=== PATIENT | male | born 1970 | race Caucasian/White ===

== ENCOUNTER 2017-03-05 17:37 | Emergency (ER) | payer SELFPAY ==
[~2017-03-05] VITALS: Ht 177.8 cm; Wt 70.0 kg
[2017-03-05 17:40] VITALS: BP 151/99; PULSE 81; RESP 16; TEMP 97.9; O2SAT 95
[2017-03-05 19:24] VITALS: BP 141/89; PULSE 82; RESP 16; TEMP 98.7; O2SAT 100
[2017-03-05] MEDS ORDERED: SODIUM CHLOR 0.9% 1000 ML INJ 1,000 ML IV SCH (19:35)
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
[2017-03-05] MEDS ORDERED: SODIUM CHLORIDE 0.9% FLUSH 10 ML FLUSH IV FLUSH PRN (19:45)
[2017-03-05] MEDS ORDERED: ONDANSETRON HCL 4 MG/2 ML VIAL IVP ONE (19:45)
[2017-03-05 20:13] LABS: WHITE BLOOD COUNT 18.8 TH/MM3 (4.0-11.0)
[2017-03-05 20:14] LABS: AUTOMATED NEUTROPHIL # 14.7 TH/MM3 (1.8-7.7); BASOPHIL # 0.1 TH/MM3 (0-0.2); BASOPHIL % 0.4 % (0.0-2.0); EOSINOPHIL # 0.3 TH/MM3 (0-0.4); EOSINOPHIL % 1.5 % (0.0-4.0); HEMATOCRIT 51.2 % (39.0-51.0); HEMO FLAGS DIFF FINAL; LYMPH % 13.7 % (9.0-44.0); LYMPHOCYTE # 2.6 TH/MM3 (1.0-4.8); MEAN CELL VOLUME 90.5 FL (80.0-100.0); MEAN CORPUSCULAR HEMOGLOBIN 29.4 PG (27.0-34.0); MEAN CORPUSCULAR HGB CONC 32.5 % (32.0-36.0); MONO % 6.2 % (0.0-8.0); NEUT % 78.2 % (16.0-70.0); PLATELET COUNT 356 TH/MM3 (150-450); RED BLOOD COUNT 5.66 MIL/MM3 (4.50-5.90); RED CELL DISTRIBUTION WIDTH 14.5 % (11.6-17.2)
[2017-03-05 20:42] LABS: ALT (GPT) 34 U/L (12-78)
[2017-03-05 20:43] LABS: ANION GAP 8 MEQ/L (5-15); AST (GOT) 29 U/L (15-37); BICARBONATE 31.9 MEQ/L (21.0-32.0); BLOOD UREA NITROGEN 8 MG/DL (7-18); CHLORIDE 101 MEQ/L (98-107); GLOMERULAR FILTRATION RATE 57 ML/MIN (>89); POTASSIUM 3.3 MEQ/L (3.5-5.1); SODIUM (NA) 141 MEQ/L (136-145)
[2017-03-05 20:44] LABS: ALKALINE PHOSPHATASE 144 U/L (45-117); TOTAL BILIRUBIN ADULT 0.4 MG/DL (0.2-1.0)
[2017-03-05 20:46] VITALS: RESP 16; O2SAT 97
[2017-03-05] MEDS ORDERED: IOHEXOL 350 MG/ML 10 ML VIAL (for RAD DIAG) IVCONTRAST ONE (21:35)
--- NOTE | 2017-03-05 21:49 | RADRPT ---
EXAM DATE/TIME: 03/05/2017 21:25 [facility] COMPARISON: No previous studies available for comparison. INDICATIONS : Abdominal pain with nausea and vomiting. IV CONTRAST: 95 cc Omnipaque 350 (iohexol) IV ORAL CONTRAST: No oral contrast ingested. RADIATION DOSE: 6.64 CTDIvol (mGy) MEDICAL HISTORY : Bowel obstruction. SURGICAL HISTORY : Appendectomy. Colon resection. ENCOUNTER: Initial ACUITY: 1 day PAIN SCALE: 6/10 LOCATION: Bilateral abdomen TECHNIQUE: Volumetric scanning of the abdomen and pelvis was performed. Using automated exposure control and ad justment of the mA and/or kV according to patient size, radiation dose was kept as low as reasonably achievable to obtain optimal diagnostic quality images. DICOM format image data is available electro nically for review and comparison. FINDINGS: Grade 1 anterolisthesis of L5 on S1. Lung bases are clear. There surgical clips in the left upper hiwot drant. The patient is status post appendectomy and previous colon surgery. Pancreas, kidneys, liver u nremarkable. The patient is status post splenectomy. There is evidence of previous right hemicolectom y. In the left upper pelvis an enhancing soft tissue nodule is present measuring 3.4 cm. Just above t his is an additional similar attenuation mass measuring 0.7 cm. In the right upper quadrant posterior to the right lobe of the liver are numerous enhancing nodules. The largest measures up to 3.5 cm. Th ere are mildly distended loops of small bowel seen best on coronal imaging up to 4.6 cm. A discrete t ransition point is not seen. The large bowel is not decompressed. An ileus can have this appearance v ersus normal baseline in this patient status post partial bowel resection. There are scattered enhanc ing soft tissue nodules roughly in her nodule on coronal image 77 in the left paracolic region, on im age 69 measuring up to 1.2 cm adjacent to the large bowel, on image 82 in the left upper quadrant tereza suring 16 cm. Bilateral L5 pars defects. CONCLUSION: 1. Mildly distended loops of bowel without transition point to suggest obstruction. Mild ileus versu s normal baseline in this postop patient with history of previous bowel resection. 2. Scattered enhancing soft tissue nodules are seen throughout the abdomen and pelvis possibly repres enting regenerative splenic tissue in this patient with history of splenectomy. Comparison to any pre vious studies would be helpful. They do not have the typical appearance of adenopathy or metastatic i mplants but similar enhancement appearance of a normal spleen. Puneet Blackman MD on March 05, 2017 at 21:41 Board Certified Radiologist. This report was verified electronically.
[2017-03-05] MEDS ORDERED: POTASSIUM CHLOR 20 MEQ PREMIX 100 ML IV ONE (22:15)
--- NOTE | 2017-03-05 22:27 | PD ---
Physical Exam Narrative I, Dr. Blas, have reviewed the advance practice practitioner's documentation and am in agreement, met with the patient face to face, made the diagnosis, and the medical decision making was done by me. *My assessment and Findings: Colitis vs. obstruction vs. gastroenteritis vs. UTI 46yo M with PMH of bowel obstruction here with nausea, vomiting and abdominal pain. Abdomen is soft, but diffusely tender. Labs reviewed, leukocytosis at 18.8. Mild hypokalemia at 3.3. Mild elevated alk phos. CT a/p showed mildly distended loops of bowel without transition point to suggest obstruction. Mild ileus versus normal baseline in this post op patient. Pt had normal bowel movement yesterday and is having flatus. Do not think pt is having obstruction now. Pt given zofran and no longer nauseous. Will do PO challenge. Pt tolerating PO. UA negative. Pain improved after morphine. Pt is well appearing and can follow up with [facility]. Return precautions given. Data Data Last Documented VS Vital Signs Date Time Temp Pulse Resp B/P (MAP) Pulse Ox O2 Delivery O2 Flow Rate FiO2 03/05/17 23:00 65 14 135/83 (100) 100 Room Air 03/05/17 19:24 98.7 Orders Orders Complete Blood Count With Diff (03/05/17 19:35) Comprehensive Metabolic Panel (03/05/17 19:35) Lipase (03/05/17 19:35) Ct Abd/Pel W Iv Contrast(Rout) (03/05/17 19:35) Iv Access Insert/Monitor (03/05/17 19:35) Ecg Monitoring (03/05/17 19:35) Oximetry (03/05/17 19:35) NPO (03/05/17 19:35) Ondansetron Inj (Zofran Inj) (03/05/17 19:45) Sodium Chlor 0.9% 1000 Ml Inj (Ns 1000 M (03/05/17 19:35) Sodium Chloride 0.9% Flush (Ns Flush) (03/05/17 19:45) Iohexol 350 Inj (Omnipaque 350 Inj) (03/05/17 21:35) Potassium Chlor 20 Meq Premix (Kcl 20 Me (03/05/17 22:15) Morphine Inj (Morphine Inj) (03/05/17 22:30) Urinalysis - C+S If Indicated (03/05/17 22:18) Ed Discharge Order (03/06/17 00:55) Labs Laboratory Tests Test 03/05/17 19:50 03/05/17 22:50 White Blood Count 18.8 TH/MM3 Red Blood Count 5.66 MIL/MM3 Hemoglobin 16.7 GM/DL Hematocrit 51.2 % Mean Corpuscular Volume 90.5 FL Mean Corpuscular Hemoglobin 29.4 PG Mean Corpuscular Hemoglobin Concent 32.5 % Red Cell Distribution Width 14.5 % Platelet Count 356 TH/MM3 Mean Platelet Volume 9.4 FL Neutrophils (%) (Auto) 78.2 % Lymphocytes (%) (Auto) 13.7 % Monocytes (%) (Auto) 6.2 % Eosinophils (%) (Auto) 1.5 % Basophils (%) (Auto) 0.4 % Neutrophils # (Auto) 14.7 TH/MM3 Lymphocytes # (Auto) 2.6 TH/MM3 Monocytes # (Auto) 1.2 TH/MM3 Eosinophils # (Auto) 0.3 TH/MM3 Basophils # (Auto) 0.1 TH/MM3 CBC Comment DIFF FINAL Differential Comment Blood Urea Nitrogen 8 MG/DL Creatinine 1.34 MG/DL Random Glucose 94 MG/DL Total Protein 8.7 GM/DL Albumin 4.2 GM/DL Calcium Level 9.2 MG/DL Alkaline Phosphatase 144 U/L Aspartate Amino Transf (AST/SGOT) 29 U/L Alanine Aminotransferase (ALT/SGPT) 34 U/L Total Bilirubin 0.4 MG/DL Sodium Level 141 MEQ/L Potassium Level 3.3 MEQ/L Chloride Level 101 MEQ/L Carbon Dioxide Level 31.9 MEQ/L Anion Gap 8 MEQ/L Estimat Glomerular Filtration Rate 57 ML/MIN Lipase 101 U/L Urine Color YELLOW Urine Turbidity CLEAR Urine pH 7.5 Urine Specific [place] GREATER THAN 1.050 Urine Protein TRACE mg/dL Urine Glucose (UA) NEG mg/dL Urine Ketones NEG mg/dL Urine Occult Blood NEG Urine Nitrite NEG Urine Bilirubin NEG Urine Urobilinogen LESS THAN 2.0 MG/DL Urine Leukocyte Esterase NEG Urine RBC 1 /hpf Urine WBC 1 /hpf Urine Mucus FEW /lpf Microscopic Urinalysis Comment CULT NOT INDICATED MDM Supervised Visit with LYNDA: Yes Diagnosis Primary Impression: Abdominal pain Qualified Codes: R10.84 - Generalized abdominal pain Patient Instructions: General Instructions Departure Forms: Tests/Procedures Additional Instruction: [facility]. Return to the ED if symptoms worsen. Med/Other Pt SpecificInfo: Prescription(s) given Scripts Ondansetron Odt (Zofran Odt) 4 Mg Tab 4 MG SL Q12HR Y for Nausea/Vomiting, #6 TAB 0 Refills Prov: Karen Blas DO 03/06/17 Acetaminophen (Tylenol) 325 Mg Tab 650 MG PO Q6H Y for PAIN SCALE 1 TO 4 for 5 Days, #40 TAB 0 Refills Prov: Karen Blas DO 03/06/17 Disposition: 01 DISCHARGE HOME Condition: Stable Karen Blas DO Mar 05, 2017 22:27
[2017-03-05] MEDS ORDERED: MORPHINE SULFATE 4 MG/ML INJ IV PUSH ONE (22:30)
[2017-03-05 23:00] VITALS: BP 135/83; PULSE 65; RESP 14; O2SAT 100
[2017-03-05 23:19] LABS: BLOOD, URINE NEG (NEG); COMMENT (UR) CULT NOT INDICATED; CULTURE IF INDICATED CULT NOT INDICATED; GLUCOSE,URINE NEG (NEG); KETONE, URINE NEG (NEG); MUCUS URINE FEW /lpf (OCC); NITRITE,URINE NEG (NEG); PH, URINE 7.5 (5.0-8.5); URINE COLOR YELLOW (YELLW/STRAW)
[2017-03-06] MEDS ORDERED: TYLE325T PO (00:54)
[2017-03-06] MEDS ORDERED: ZOFR4TAB3 SL (01:39)
== END 2017-03-06 01:17 | disposition home or self-care (01) ==
LOC: NEPE 17:37
DX: R10.84 Generalized abdominal pain (principal); E87.6 Hypokalemia; Z90.81 Acquired absence of spleen; Z90.49 Acquired absence of other specified parts of digestive tract; Z88.0 Allergy status to penicillin
CPT/HCPCS: 74177; 80053; 81001; 83690; 85025; 96361; 96365; 96366; 96375; 99285; J2270; J2405; J3480; J7030; Q9967